=== PATIENT | female | born 1945 | race Caucasian/White ===

== ENCOUNTER 2017-02-06 08:48 | Outpatient (CLI) | payer MEDICARE ==
[2017-02-06 09:15] LABS: Prothrombin Time 22.6 SEC (12.0-14.7)
== END 2017-02-06 08:49 | disposition home or self-care (01) ==
LOC: MADLABBHPM 08:48
PROVIDERS: ATTEND Family Medicine
DX: I35.9 Nonrheumatic aortic valve disorder, unspecified (principal)
CPT/HCPCS: 36415; 85610